=== PATIENT | female | born 1985 | race Caucasian/White ===

== ENCOUNTER 2019-03-04 07:51 | Emergency (ER) | payer BC ==
[~2019-03-04] VITALS: Ht 160 cm; Wt 49.9 kg
[2019-03-04] MEDS: KETOROLAC 15 MG/ML VIAL. IVP ONE (08:50)
--- NOTE | 2019-03-04 08:58 | PHYS DOC ---
Past Medical History Past Medical History: Anxiety Past Surgical History: Hysterectomy Alcohol Use: None Drug Use: None Adult General Chief Complaint Chief Complaint: MULTIPLE COMPLAINTS HPI HPI Patient is a 33 year old 30-year-old female presents with persistent left upper neck pain 3 weeks. Patient states she woke with neck pain and feels that she may have slept on it incorrectly. Patient states 3 days ago developed facial and cervical lymphadenopathy. She was evaluated at the [facility] emergency Department 2 days ago and had lab and CT imaging performed of her head neck. Patient was told she had small nodules or lymph nodes and that she should follow up with the primary care physician provider. Today, the patient faint red blotchy rash on face that itches. Denies any new exposure. She is not taking any medications. This morning, the patient reports increased fatigue and malaise. Patient denies fever chills, nausea vomiting or sweats. No motor weakness or radicular symptoms. No other acute symptoms or complaints. Patient is a smoker. Garcia hysterectomy. [] Review of Systems Review of Systems Review of symptoms as per history of present illness. All other review symptoms are negative All other systems were reviewed and found to be within normal limits, except as documented in this note. Current Medications Current Medications Current Medications Medications (Trade) Dose Ordered Sig/Gurwinder Start Time Stop Time Status Last Admin Dose Admin Ketorolac Tromethamine (Toradol 15mg Vial) 15 mg 1X ONCE 03/04/19 09:00 03/04/19 09:01 DC 03/04/19 08:50 15 MG Sodium Chloride 1,000 ml @ 1,000 mls/hr 1X ONCE 03/04/19 09:30 03/04/19 10:29 DC 03/04/19 09:05 1,000 MLS/HR Allergies Allergies Allergies Coded Allergies Type Severity Reaction Last Updated Verified No Known Drug Allergies 03/04/19 No Physical Exam Physical Exam Constitutional: Well developed, well nourished, no acute distress, non-toxic appearance. [] HENT: Normocephalic, atraumatic, bilateral external ears normal, oropharynx moist, no oral exudates, nose normal. Preauricular lymphadenopathy,[] Eyes: PERRL, EOMI, conjunctiva normal, no discharge. [] Neck: Normal range of motion, left occiput scalp tenderness around nuchal line, supple, no stifness. [] Cardiovascular:Heart rate regular rhythm, no murmur [] Lungs & Thorax: Bilateral breath sounds clear to auscultation [] Abdomen: Bowel sounds normal. [] Skin: Faint blotchy red rash on forehead and left maxillary[] Back: No tenderness. [] Extremities: No tenderness. [] Neurologic: Alert and oriented X 3, normal motor function, normal sensory function, no focal deficits noted. [] Psychologic: Affect normal, judgement normal, mood normal. [] Current Patient Data Vital Signs Vital Signs Date Time Temp Pulse Resp B/P (MAP) Pulse Ox O2 Delivery O2 Flow Rate FiO2 03/04/19 08:10 97.6 74 16 125/70 (88) 100 Room Air 97.6 Lab Values Laboratory Tests Test 03/04/19 08:13 03/04/19 08:30 03/04/19 08:40 POC Urine HCG, Qualitative Hcg negative (Negative) Influenza Type A Antigen Negative (NEGATIVE) Influenza Type B Antigen Negative (NEGATIVE) White Blood Count 3.1 x10^3/uL (4.0-11.0) L Red Blood Count 4.32 x10^6/uL (3.50-5.40) Hemoglobin 13.8 g/dL (12.0-15.5) Hematocrit 40.8 % (36.0-47.0) Mean Corpuscular Volume 94 fL (79-100) Mean Corpuscular Hemoglobin 32 pg (25-35) Mean Corpuscular Hemoglobin Concent 34 g/dL (31-37) Red Cell Distribution Width 13.4 % (11.5-14.5) Platelet Count 193 x10^3/uL (140-400) Neutrophils (%) (Auto) 49 % (31-73) Lymphocytes (%) (Auto) 32 % (24-48) Monocytes (%) (Auto) 15 % (0-9) H Eosinophils (%) (Auto) 3 % (0-3) Basophils (%) (Auto) 1 % (0-3) Neutrophils # (Auto) 1.5 x10^3/uL (1.8-7.7) L Lymphocytes # (Auto) 1.0 x10^3/uL (1.0-4.8) Monocytes # (Auto) 0.5 x10^3/uL (0.0-1.1) Eosinophils # (Auto) 0.1 x10^3/uL (0.0-0.7) Basophils # (Auto) 0.0 x10^3/uL (0.0-0.2) Sodium Level 141 mmol/L (136-145) Potassium Level 4.2 mmol/L (3.5-5.1) Chloride Level 105 mmol/L (98-107) Carbon Dioxide Level 29 mmol/L (21-32) Anion Gap 7 (6-14) Blood Urea Nitrogen 11 mg/dL (7-20) Creatinine 0.9 mg/dL (0.6-1.0) Estimated GFR (Cockcroft-Gault) 72.1 BUN/Creatinine Ratio 12 (6-20) Glucose Level 64 mg/dL (70-99) L Calcium Level 9.1 mg/dL (8.5-10.1) Total Bilirubin 0.3 mg/dL (0.2-1.0) Aspartate Amino Transferase (AST) 12 U/L (15-37) L Alanine Aminotransferase (ALT) 15 U/L (14-59) Alkaline Phosphatase 56 U/L (46-116) C-Reactive Protein, Quantitative 0.5 mg/L (0-3.3) Total Protein 6.3 g/dL (6.4-8.2) L Albumin 3.7 g/dL (3.4-5.0) Albumin/Globulin Ratio 1.4 (1.0-1.7) Heterophil Agglutinins Negative (NEGATIVE) Laboratory Tests 03/04/19 08:40 Laboratory Tests 03/04/19 08:40 EKG EKG [] Radiology/Procedures Radiology/Procedures [] Course & Med Decision Making Course & Med Decision Making Pertinent Labs and Imaging studies reviewed. (See chart for details) [Nondescript fatigue with facial rash and itching, lymphadenopathy and ongoing neck pain for 3 weeks. Etiology of patient's symptoms, but could represent viral illness. No discrete treatable bacterial illness including on exam. Recommend supportive care with PCP follow-up. Patient works as a 6 grade schoolteacher. Courtesy work note will be provided. ] Dragon Disclaimer Dragon Disclaimer This electronic medical record was generated, in whole or in part, using a voice recognition dictation system. Departure Departure Impression: Primary Impression: Cervical lymphadenopathy Additional Impressions: Facial rash Malaise and fatigue Neck pain Disposition: HOME, SELF-CARE Condition: STABLE Referrals: NO PCP (PCP) Additional Instructions: You were evaluated in the emergency department for fatigue, swollen lymph nodes facial rash. The cause of your symptoms has not been determined but may be asthma virus. Please go home and rest, increase fluids and take 40 mg of ibuprofen 3 times daily Benadryl for itching and Flexeril as needed for neck pain. Contact your primary care provider and schedule follow-up appointment in 5-7 days. Scripts Cyclobenzaprine Hcl (CYCLOBENZAPRINE HCL) 10 Mg Tablet 10 MG PO TID for 10 Days, #30 TAB Prov: FREYA JAIMES DO 03/04/19 Problem Qualifiers FREYA JAIMES DO Mar 04, 2019 08:58
[2019-03-04 09:03] LABS: BASO % 1 % (0-3); EOS # 0.1 x10^3/uL (0.0-0.7); EOS % 3 % (0-3); HEMATOCRIT 40.8 % (36.0-47.0); HEMOGLOBIN 13.8 g/dL (12.0-15.5); LYMPH % 32 % (24-48); MEAN CORPUSCULAR HEMOGLOBIN 32 pg (25-35); MEAN CORPUSCULAR HGB CONC 34 g/dL (31-37); MEAN CORPUSCULAR VOLUME 94 fL (79-100); MONO # 0.5 x10^3/uL (0.0-1.1); MONO % 15 % (0-9); NEUT # 1.5 x10^3/uL (1.8-7.7); NEUT % 49 % (31-73); PLATELET COUNT 193 x10^3/uL (140-400); RED BLOOD COUNT 4.32 x10^6/uL (3.50-5.40); RED CELL DISTRIBUTION WIDTH 13.4 % (11.5-14.5); WHITE BLOOD COUNT 3.1 x10^3/uL (4.0-11.0)
[2019-03-04] MEDS: IV NORMAL SALINE 1000ML BAG 1,000 ML IV ONE (09:05)
[2019-03-04 09:08] LABS: CALCIUM 9.1 mg/dL (8.5-10.1); CREATININE 0.9 mg/dL (0.6-1.0); GFR 72.1; POTASSIUM 4.2 mmol/L (3.5-5.1)
[2019-03-04 09:14] LABS: ALBUMIN 3.7 g/dL (3.4-5.0); ALBUMIN/GLOBULIN RATIO 1.4 (1.0-1.7); C-REACTIVE PROTEIN 0.5 mg/L (0-3.3); TOTAL BILIRUBIN 0.3 mg/dL (0.2-1.0); TOTAL PROTEIN 6.3 g/dL (6.4-8.2)
[2019-03-04 09:19] LABS: INFLUENZA A PATIENT NEGATIVE (NEGATIVE); INFLUENZA B PATIENT NEGATIVE (NEGATIVE)
[2019-03-04 10:00] VITALS: BP 112/72
[2019-03-04 10:10] LABS: MONONUCLEOSIS PATIENT NEGATIVE (NEGATIVE)
[2019-03-04] MEDS ORDERED: CYCL10TA2 PO (10:40)
== END 2019-03-04 11:10 | disposition home or self-care (01) ==
LOC: ER 07:51
DX: R59.1 Generalized enlarged lymph nodes (principal); M54.2 Cervicalgia; R21 Rash and other nonspecific skin eruption; R53.81 Other malaise; R53.83 Other fatigue; F41.9 Anxiety disorder, unspecified; Z90.710 Acquired absence of both cervix and uterus
CPT/HCPCS: 36415; 80053; 81025; 85025; 86140; 86308; 87804; 96374; 99284; J1885; J7030